=== PATIENT | male | born 1940 | race Caucasian/White ===

== ENCOUNTER 2020-11-25 06:14 | Day surgery (SDC) | payer MEDICARE, OTHER ==
--- NOTE | 2020-11-21 13:56 | PCM.PREANE ---
Preanesthetic Assessment - Procedure Proposed Procedure: Left Carpal Tunnel Release - Anesthesia/Transfusion/Family Hx Anesthesia History: Prior Anesthesia Without Reaction Family History of Anesthesia Reaction: No Transfusion History: No Prior Transfusion(s) Intubation History: Unknown - Review of Systems Cardiovascular: No Symptoms (HTN, elevated cholesterol) Gastrointestinal: No Symptoms (GERD), Constipation Other: Reports: Diabetes (am blood sugar=), Thyroid Problems (hypothyroid) - Physical Assessment NPO Status Date: 11/24/20 Vital Signs: HR: Sat: Temp: Resp: B/P: ASA Class: 3 Mental Status: Alert & Oriented x3 - Allergies Allergies/Adverse Reactions: Allergies Allergy/AdvReac Type Severity Reaction Status Date / Time No Known Allergies Allergy Verified 04/18/19 14:26 - Acknowledgements Anesthesia Type Planned: MAC Pt an Appropriate Candidate for the Planned Anesthesia: Yes Alternatives and Risks of Anesthesia Discussed w Pt/Guardian: Yes Pt/Guardian Understands and Agrees with Anesthesia Plan: Yes PreAnesthesia Questionnaire - HOME MEDS Home Medications: Home Meds Acetaminophen [Tylenol] 650 mg PO Q6H PRN 04/18/19 [History] Aspirin [Halfprin] 81 mg PO BID 04/18/19 [History] Docusate Sodium/Sennosides [Senokot-S] 1 tab PO BID 04/18/19 [History] Doxazosin [Doxazosin Mesylate] 6.5 mg PO DAILY 04/18/19 [History] Famotidine 20 mg PO QPM 04/18/19 [History] Finasteride 5 mg PO DAILY 04/18/19 [History] Fosinopril [Monopril] 10 mg PO DAILY 04/18/19 [History] Furosemide [Lasix] 20 mg PO DAILY 04/18/19 [History] Levothyroxine [Synthroid] 88 mcg PO DAILY 04/18/19 [History] Meloxicam 7.5 mg PO QPM 04/18/19 [History] Potassium Chloride [Klor-Con 10] 20 meq PO BID 04/18/19 [History] Rosuvastatin Calcium [Crestor] 40 mg PO DAILY 04/18/19 [History] gemfibroziL [Gemfibrozil] 600 mg PO BID 04/18/19 [History] metFORMIN HCl [Metformin HCl] 1,000 mg PO BID 04/18/19 [History] oxyCODONE 5 mg PO Q6H PRN 04/18/19 [History] - CURRENT (IN HOUSE) MEDS Current Meds: Current Medications Lactated Ringer's (Ringers, Lactated) 1,000 mls @ 125 mls/hr IV ASDIRECTED BRYANNA Stop: 11/25/20 23:00 Lidocaine/Sodium Bicarbonate (Lidocaine 1%/Sod Bicarbonate In Ns 8.4% 1 Ml Syringe) 0.25 ml IDERM ONETIME PRN PRN Reason: Prior to IV Start Stop: 11/25/20 18:00 Sodium Chloride (Sodium Chloride 0.9% 10 Ml Syringe) 10 ml FLUSH ASDIRECTED PRN PRN Reason: Keep Vein Open Stop: 11/25/20 18:00
[~2020-11-25 06:14] MED LIST: Lactated Ringers 1,000 ML IV SCH; Lidocaine 1%/Sod Bicarbonate in NS 8.4% 1 ML Syringe IDERM PRN; Sodium Chloride 0.9% 10 ML Syringe FLUSH PRN
[2020-11-25] MEDS ORDERED: Lidocaine 1% 30 ML SDV ONE (06:50)
[2020-11-25] MEDS ORDERED: Bupivacaine 0.25% 10 ML SDV ONE (06:50)
[2020-11-25] MEDS ORDERED: Ondansetron 4 MG/2 ML SDV ONE (06:58)
[2020-11-25] MEDS ORDERED: Propofol 200 MG/20 ML SDV ONE (06:59)
[2020-11-25] MEDS ORDERED: Lidocaine 1% 4 ML ONE (06:59)
[2020-11-25] MEDS ORDERED: fentaNYL 100 MCG/2 ML SDV ONE (06:59)
--- NOTE | 2020-11-25 07:53 | PCM.PREANE ---
Preanesthetic Assessment - Procedure Proposed Procedure: left carpal tunnel release - Anesthesia/Transfusion/Family Hx Anesthesia History: Prior Anesthesia Without Reaction Family History of Anesthesia Reaction: No Transfusion History: No Prior Transfusion(s) - Review of Systems General: No Symptoms Pulmonary: No Symptoms Cardiovascular: No Symptoms Gastrointestinal: No Symptoms Neurological: Numbness (left hand) Other: Reports: Diabetes (check this am 143) - Physical Assessment NPO Status Date: 11/24/20 NPO Status Time: 00:00 Height: 1.75 m Weight: 90 kg ASA Class: 3 Mental Status: Alert & Oriented x3 Airway Class: Mallampati = 2 Dentition: Reports: Partial Thyro-Mental Finger Breadths: 2 Mouth Opening Finger Breadths: 2 ROM/Head Extension: Limited/Partial Lungs: Clear to Auscultation, Normal Respiratory Effort Cardiovascular: Regular Rate, Regular Rhythm - Lab Values: Laboratory Last Values POC Glucose 143 mg/dL (83-110) H 11/25/20 06:42 - Allergies Allergies/Adverse Reactions: Allergies Allergy/AdvReac Type Severity Reaction Status Date / Time No Known Allergies Allergy Verified 11/22/20 11:13 - Anesthesia Plan Pre-Op Medication Ordered: None - Acknowledgements Anesthesia Type Planned: MAC Pt an Appropriate Candidate for the Planned Anesthesia: Yes Alternatives and Risks of Anesthesia Discussed w Pt/Guardian: Yes Pt/Guardian Understands and Agrees with Anesthesia Plan: Yes PreAnesthesia Questionnaire HEENT History: Reports: Impaired Vision Cardiovascular History: Reports: High Cholesterol, Hypertension, Other (See Below) Other Cardiovascular History: edema Respiratory History: Reports: None Genitourinary History: Reports: BPH, Renal Calculus, Other (See Below) Other Genitourinary History: retention, acute kidney injury, chronic kidney disease, bladder stone, cystolitholapaxy [employer]IT[employer]ING History: Reports: None Musculoskeletal History: Reports: Other (See Below) Other Musculoskeletal History: post operative pain, left knee artificial joint infection, bunion, hammertoe Neurological History: Reports: None Psychiatric History: Reports: None Endocrine/Metabolic History: Reports: Diabetes, Type II, Hypothyroidism, Vitamin D Deficiency Hematologic History: Reports: Other (See Below) Other Hematologic History: hypokalemia, hyperkalemia, acute blood loss anemia, low magnesium, pancytopenia Immunologic History: Reports: None Oncologic (Cancer) History: Reports: None Dermatologic History: Reports: None - Infectious Disease History Infectious Disease History: Reports: None - Past Surgical History Head Surgeries/Procedures: Reports: None HEENT Surgical History: Reports: Cataract Surgery Cardiovascular Surgical History: Reports: None Respiratory Surgical History: Reports: None GI Surgical History: Reports: Appendectomy, Cholecystectomy, Colonoscopy, Hernia, Inguinal Male Surgical History: Reports: Renal Calculus Endocrine Surgical History: Reports: None Neurological Surgical History: Reports: None Musculoskeletal Surgical History: Reports: Arthroscopic Knee, Knee Replacement, Other (See Below) Other Musculoskeletal Surgeries/Procedures:: left knee replacement then revision x 2 Oncologic Surgical History: Reports: None Dermatological Surgical History: Reports: None - SUBSTANCE USE Tobacco Use Status *Q: Never Tobacco User Days Per Week of Alcohol Use: 1 Number of Drinks Per Day: 1 Total Drinks Per Week: 1 Recreational Drug Use History: No - HOME MEDS Home Medications: Home Meds Acetaminophen [Tylenol] 650 mg PO Q6H PRN 04/18/19 [History] Aspirin [Halfprin] 81 mg PO DAILY 04/18/19 [History] Doxazosin [Cardura] 6 mg PO DAILY 04/18/19 [History] Finasteride 5 mg PO DAILY 04/18/19 [History] Rosuvastatin Calcium [Crestor] 40 mg PO DAILY 04/18/19 [History] metFORMIN HCl [Metformin HCl] 500 mg PO BID 04/18/19 [History] Acetaminophen/Diphenhydramine [Tylenol Pm Ex-Strength Caplet] 2 tab PO BEDTIME PRN 11/22/20 [History] Doxycycline [Vibramycin] 100 mg PO BID 11/22/20 [History] Furosemide [Lasix] 40 mg PO DAILY 11/22/20 [History] Levothyroxine 150 mcg PO DAILY 11/22/20 [History] glipiZIDE [Glipizide ER] 5 mg PO QAM 11/22/20 [History] Acetaminophen/HYDROcodone [[place] 325-5 MG] 1 - 2 tab PO Q6H PRN #10 tablet 11/25/20 [Rx] - CURRENT (IN HOUSE) MEDS Current Meds: Current Medications Lactated Ringer's (Ringers, Lactated) 1,000 mls @ 125 mls/hr IV ASDIRECTED BRYANNA Stop: 11/25/20 23:00 Lidocaine/Sodium Bicarbonate (Lidocaine 1%/Sod Bicarbonate In Ns 8.4% 1 Ml Syringe) 0.25 ml IDERM ONETIME PRN PRN Reason: Prior to IV Start Stop: 11/25/20 18:00 Sodium Chloride (Sodium Chloride 0.9% 10 Ml Syringe) 10 ml FLUSH ASDIRECTED PRN PRN Reason: Keep Vein Open Stop: 11/25/20 18:00 Discontinued Medications Bupivacaine HCl (Bupivacaine 0.25% 10 Ml Sdv) Confirm Administered Dose 10 ml .ROUTE .STK-MED ONE Stop: 11/25/20 06:51 Fentanyl (Fentanyl 100 Mcg/2 Ml Sdv) Confirm Administered Dose 100 mcg .ROUTE .STK-MED ONE Stop: 11/25/20 07:00 Lidocaine HCl (Xylocaine-Mpf 1%) Confirm Administered Dose 4 mls @ as directed .ROUTE .STmyEDmatch-MED ONE Stop: 11/25/20 07:00 Lidocaine HCl (Lidocaine 1% 30 Ml Sdv) Confirm Administered Dose 30 ml .ROUTE .STK-MED ONE Stop: 11/25/20 06:51 Ondansetron HCl (Ondansetron 4 Mg/2 Ml Sdv) Confirm Administered Dose 4 mg .ROUTE .STK-MED ONE Stop: 11/25/20 06:59 Propofol (Propofol 200 Mg/20 Ml Sdv) Confirm Administered Dose 200 mg .ROUTE .STK-MED ONE Stop: 11/25/20 07:00
--- NOTE | 2020-11-25 13:44 | PCM.OPNOTE ---
- General Post-Op/Procedure Note Date of Surgery/Procedure: 11/25/20 Operative Procedure(s): left carpal tunnel release Pre Op Diagnosis: left median nerve compression neuropathy Post-Op Diagnosis: Same Anesthesia Technique: Local, MAC Primary Surgeon: Chaz Worthington Anesthesia Provider: Channing [employer] Driver: Laya Duggan EBL in mLs: 5 Complications: None Condition: Good Free Text/Narrative:: Intake & Output 11/24/20 11/25/20 11/25/20 22:59 06:59 14:59 Intake Total 200 Balance 200
--- NOTE | 2020-12-02 07:32 | OR ---
DATE OF OPERATION: 11/25/2020 SURGEON: Chaz Worthington MD OPERATION PERFORMED: Left carpal tunnel release. PREOPERATIVE DIAGNOSIS: Left median nerve compression neuropathy. POSTOPERATIVE DIAGNOSIS: Left median nerve compression neuropathy. ANESTHESIA: Local MAC. ANESTHESIA PROVIDER: Channing Philip [employer] WRITER: Laya Duggan PA-C ESTIMATED BLOOD LOSS: Less than 5 mL. COMPLICATIONS: None. CONDITION: Stable. DESCRIPTION OF PROCEDURE: The patient was identified in the preop holding area. Proper site was marked and identified by the surgeon. The patient was taken back to the operating theater where after adequate anesthesia, the patient's left upper extremity was sterilely prepped and draped in the usual sterile fashion. OR time-out was performed. The patient did not receive antibiotics and it is not indicated for soft tissue hand procedure. At this time, the left upper extremity was exsanguinated and an Esmarch was used as a tourniquet on the forearm. At this time, using 1% lidocaine without epinephrine and 0.25% Marcaine without epinephrine, the palmar cutaneous branch of the median nerve was anesthetized and then the incisional site was anesthetized using [place] cardinal line and ulnar border of the fourth digit as reference. Once this had set up, an incision was made. Blunt dissection was taken down to the palmar cutaneous fascia. Palmar cutaneous fascia was incised with a [place] blade. At this time, the transverse carpal ligament was identified. A small rent was made in the transverse carpal ligament with a [place] blade under direct visualization. Resection of the transverse carpal ligament was done distally using tenotomy scissors making sure to stop short of the palmar arch. At this time, attention was turned proximally after it was found to be adequately released. Using the tenotomy scissors keeping the tips ulnar to protect the palmar cutaneous branch of the median nerve, the superficial forearm fascia as well as the transverse carpal ligament were resected proximally. It was found to be adequate release both proximally and distally. At this time, adequate saline was irrigated through the wound. 4-0 nylon sutures were used closure of the skin. The patient was placed in a sterile soft dressing and sent to PACU in stable condition. MMODAL /[id number]
== END 2020-11-25 08:50 | disposition home or self-care (01) ==
LOC: JD.SDS 06:14
PROVIDERS: ATTEND Orthopaedic Surgery
DX: G56.02 Carpal tunnel syndrome, left upper limb (principal); G56.12 Other lesions of median nerve, left upper limb; I10 Essential (primary) hypertension; E03.9 Hypothyroidism, unspecified; R60.9 Edema, unspecified; E87.6 Hypokalemia; E78.2 Mixed hyperlipidemia; E11.22 Type 2 diabetes mellitus with diabetic chronic kidney disease; I12.9 Hypertensive chronic kidney disease with stage 1 through stage 4 chronic kidney disease, or unspecified chronic kidney disease; N18.30 Chronic kidney disease, stage 3 unspecified; G89.18 Other acute postprocedural pain; Z79.82 Long term (current) use of aspirin; Z79.84 Long term (current) use of oral hypoglycemic drugs; Z79.890 Hormone replacement therapy; Z79.899 Other long term (current) drug therapy; Z98.890 Other specified postprocedural states
CPT/HCPCS: 64721; 82962; J2405; J2704; J3010; J3490; J7120; 01810; 99100

== ENCOUNTER 2023-11-19 15:02 | Emergency (ER) | payer MEDICARE, OTHER ==
[2023-11-19 15:30] LABS: BASOPHILS PERCENT AUTO 0.5 % (0.0-1.0); EOSINOPHILS PERCENT AUTO 0.2 % (0.0-6.0); HEMATOCRIT 35.3 % (42.0-52.0); HEMOGLOBIN 11.2 gm/dl (14.0-18.0); IMMATURE GRAN ABSOLUTE AUTO 0.02 K/mm3 (0.00-0.05); IMMATURE GRAN PERCENT AUTO 0.5 % (0.0-0.4); LYMPHOCYTES ABSOLUTE AUTO 0.5 K/mm3 (1.0-4.8); LYMPHOCYTES PERCENT AUTO 11.8 % (24.0-44.0); MEAN CORPUSCULAR HEMOGLOBIN 27.2 pg (28.0-32.0); MEAN CORPUSCULAR HGB CONC 31.7 g/dl (32.0-36.0); MEAN CORPUSCULAR VOLUME 85.7 fl (83.0-99.0); MONOCYTES ABSOLUTE AUTO 0.5 K/mm3 (0.0-0.8); MONOCYTES PERCENT AUTO 12.1 % (0.0-8.0); NEUTROPHILS ABSOLUTE AUTO 3.3 K/mm3 (1.8-7.7); NEUTROPHILS PERCENT AUTO 74.9 % (41.0-71.0); PLATELET COUNT,PLT 98 K/mm3 (150-400); RED BLOOD CELL COUNT 4.12 M/mm3 (4.52-5.90); WHITE BLOOD CELL COUNT,WBC 4.39 K/mm3 (3.9-11.3)
[2023-11-19 16:05] LABS: A/G RATIO 0.9 (1-2); ALBUMIN 3.5 g/dl (3.4-5.0); ANION GAP 17.8 (5-15); BILIRUBIN TOTAL 0.7 mg/dL (0.2-1.0); C-REACTIVE PROTEIN 8.13 mg/dL (<0.30); CALCIUM 8.9 mg/dL (8.5-10.1); CREATININE 2.5 mg/dL (0.7-1.3); EST CRCL DRUG DOSING (CG) 20.93 mL/min; POTASSIUM,K 3.8 mEq/L (3.5-5.1); PROTEIN TOTAL,TP 7.3 g/dl (6.4-8.2)
[2023-11-19 16:14] LABS: CORONAVIRUS COVID-19 NAA NEGATIVE (NEGATIVE); INFLUENZA A NAA NEGATIVE (NEGATIVE); RESPIRATORY SYNCYTIAL VIR NAA NEGATIVE (NEGATIVE)
[2023-11-19 16:22] LABS: APPEARANCE,URINE SLT CLOUDY (Clear); BILIRUBIN,URINE NEGATIVE (Negative); COLOR,URINE YELLOW (Yellow); GLUCOSE,URINE NEGATIVE (Negative); KETONES,URINE NEGATIVE (Negative); LEUKOCYTE ESTERASE,URINE 3+ (Negative); NITRITE,URINE NEGATIVE (Negative); OCCULT BLOOD,URINE 2+ (Negative); PH,URINE 6.5 (5.0-8.0); PROTEIN,URINE 2+ (Negative); UROBILINOGEN,URINE 0.2 (0.2-1.0)
[2023-11-19 16:26] LABS: LACTIC ACID 1.5 mmol/L (0.4-2.0)
[2023-11-19 16:53] LABS: WBC,URINE 75-100 /hpf (0-5)
[2023-11-19 16:54] LABS: BACTERIA,URINE MANY /hpf (FEW); MUCUS,URINE FEW /hpf (FEW); SQUAMOUS EPITHELIAL CELLS,UR 0-5 /hpf (0-5)
[2023-11-19] MEDS: cefTRIAXone 1 GM in Sodium Chloride 0.9% 100 ML IV ONE (17:10)
== END 2023-11-19 18:05 | disposition home or self-care (01) ==
LOC: JD.ED 15:02
DX: R53.1 Weakness (principal); R06.02 Shortness of breath; N30.01 Acute cystitis with hematuria; Y84.6 Urinary catheterization as the cause of abnormal reaction of the patient, or of later complication, without mention of misadventure at the time of the procedure; I10 Essential (primary) hypertension; E78.00 Pure hypercholesterolemia, unspecified; E11.9 Type 2 diabetes mellitus without complications; E03.9 Hypothyroidism, unspecified; Z79.84 Long term (current) use of oral hypoglycemic drugs; Z79.899 Other long term (current) drug therapy; Z90.49 Acquired absence of other specified parts of digestive tract
CPT/HCPCS: 0241U; 36415; 71045; 71045-26; 80053; 81001; 83605; 83735; 83880; 84484; 85025; 86140; 87040; 87086; 87088; 87186; 93005; 93971-26-LT; 93971-LT; 96365; 99285-25; J0696; J3490